=== PATIENT | male | born 1990 | race Caucasian/White ===

== ENCOUNTER 2019-02-04 21:57 | Emergency (ER) | payer OTHER ==
[2019-02-04 22:15] VITALS: BP 119/65
--- NOTE | 2019-02-04 22:36 | UC ---
Skin Complaint HPI - HPI Summary HPI Summary: 28-year-old male comes in with a chief complaint a laceration to the dorsum of the left foot. Just prior to arrival he dropped a cup and it broke and cut his left foot. He is not sure if he has a foreign body in there. Bleeding was stopped with direct pressure. Patient has full range of motion full-strength no numbness or weakness of the foot. Patient is up-to-date with his tetanus. - History of Current Complaint Chief Complaint: UCLaceration Time Seen by Provider: 02/04/19 22:19 Stated Complaint: LEFT FOOT LACERATION Pain Intensity: 1 - Allergy/Home Medications Allergies/Adverse Reactions: Allergies Allergy/AdvReac Type Severity Reaction Status Date / Time egg yolk Allergy gas, food Verified 02/04/19 22:08 intolerance pollen Allergy Congestion Uncoded 02/04/19 22:08 Home Medications: Home Medications Cetirizine* [ZyrTEC 10 MG TAB*] 10 mg PO DAILY PRN 02/04/19 [History Confirmed 02/04/19] Multivitamin with Iron [Multivitamins with Iron] 1 each PO DAILY 02/04/19 [ History Confirmed 02/04/19] PMH/Surg Hx/FS Hx/Imm Hx Previously Healthy: Yes - Surgical History Surgical History: None - Family History Known Family History: Positive: Non-Contributory - Social History Alcohol Use: Rare Substance Use Type: None Smoking Status (MU): Former Smoker - Immunization History Most Recent Tetanus Shot: 06/2018 Review of Systems All Other Systems Reviewed And Are Negative: Yes Constitutional: Positive: Negative Skin: Positive: Other - SEE HPI Eyes: Positive: Negative ENT: Positive: Negative Respiratory: Positive: Negative Cardiovascular: Positive: Negative Gastrointestinal: Positive: Negative Motor: Positive: Negative Neurovascular: Positive: Negative Musculoskeletal: Positive: Negative Neurological: Positive: Negative Psychological: Positive: Negative Is Patient Immunocompromised?: No Physical Exam Triage Information Reviewed: Yes Appearance: Well-Appearing, No Pain Distress, Well-Nourished Vital Signs: Initial Vital Signs Temp 97.8 F 02/04/19 22:11 Pulse 66 02/04/19 22:11 Resp 17 02/04/19 22:11 BP 119/65 02/04/19 22:11 Pulse Ox 100 02/04/19 22:11 Vital Signs Reviewed: Yes Eye Exam: Normal Eyes: Positive: Conjunctiva Clear Neck: Positive: Supple Respiratory: Positive: No respiratory distress Musculoskeletal: Positive: Strength Intact, ROM Intact Neurological: Positive: Alert, Muscle Tone Normal Psychological: Positive: Age Appropriate Behavior Skin: Positive: Other - 1CM SC LACERATION DORSUM OF LEFT FOOT Laceration Repair - Laceration Repair 1 Description: Linear Laceration Size After Repair: Length (cm) - 1CM Modified For Repair: No Type Injection: Local Anesthesia Used: 1.0% Lido Irrigation With Pressure Irrigation Device: Yes Closure Material: Sutures Closure Method: Single Layer Suture Of: Skin - #2 SUTURES Suture Type: Prolene - 5-0 Course/Dx - Diagnoses Provider Diagnosis: Laceration of foot, left Discharge - Sign-Out/Discharge Documenting (check all that apply): Patient Departure All imaging exams completed and their final reports reviewed: No - Discharge Plan Condition: Stable Disposition: HOME Prescriptions: Cephalexin CAP* [Keflex CAP*] 500 mg PO TID #20 cap Patient Education Materials: Care For Your Stitches (ED), Laceration (ED) Referrals: Mechelle Lee NP [Primary Care Provider] - Additional Instructions: FOLLOW UP WITH YOUR DOCTOR IF NOT COMPLETELY IMPROVED. GET REEVALUATED SOONER IF WORSE; SIGNS OF INFECTION OR ANY QUESTIONS OR CONCERNS. - Billing Disposition and Condition Condition: STABLE Disposition: Home
[2019-02-04] MEDS ORDERED: Lidocaine 1% MPF ** 5 ML VIAL INJ ONE (22:37)
[2019-02-04] MEDS ORDERED: Cephalexin CAP* 500 MG PO ONE (22:58)
--- NOTE | 2019-02-05 08:37 | UC ---
- Progress Note Progress Note: xray report left foot: IMPRESSION: NO RADIOPAQUE FOREIGN BODY IS SEEN. Course/Dx - Diagnoses Provider Diagnoses: Laceration of foot, left Discharge - Sign-Out/Discharge Documenting (check all that apply): Patient Departure All imaging exams completed and their final reports reviewed: Yes - Discharge Plan Condition: Stable Disposition: HOME Prescriptions: Cephalexin CAP* [Keflex CAP*] 500 mg PO TID #20 cap Patient Education Materials: Care For Your Stitches (ED), Laceration (ED) Referrals: Mechelle Lee NP [Primary Care Provider] - Additional Instructions: FOLLOW UP WITH YOUR DOCTOR IF NOT COMPLETELY IMPROVED. GET REEVALUATED SOONER IF WORSE; SIGNS OF INFECTION OR ANY QUESTIONS OR CONCERNS. - Billing Disposition and Condition Condition: STABLE Disposition: Home
== END 2019-02-04 23:09 | disposition home or self-care (01) ==
LOC: UCCORT 21:57
DX: S91.312A Laceration without foreign body, left foot, initial encounter (principal); W22.8XXA Striking against or struck by other objects, initial encounter; Y92.9 Unspecified place or not applicable; Z87.891 Personal history of nicotine dependence
CPT/HCPCS: 12001; 99212; A9270-GY; G0463